=== PATIENT | male | born 2000 | race Caucasian/White ===

== ENCOUNTER 2018-08-18 13:00 | Outpatient (RCR) | payer BC ==
[~2018-08-18 13:00] MED LIST: ZOLOFT100 MG PO
[2018-09-25 22:55] VITALS: BP 114/65
== END 2018-09-19 | disposition still patient (30) ==
LOC: PT
DX: M77.51 Other enthesopathy of right foot and ankle (principal)

== ENCOUNTER → 2019-10-26 | Outpatient (CLI) | payer BC ==
[2018-09-25 22:55] VITALS: BP 114/65
== END ==
LOC: LAB 14:31
DX: R05 Cough (principal); R50.9 Fever, unspecified; R11.0 Nausea; R19.7 Diarrhea, unspecified; R61 Generalized hyperhidrosis

== ENCOUNTER 2020-08-19 20:51 | Emergency (ER) | payer BC ==
[2020-08-19 21:20] VITALS: BP 148/81
[2020-08-19] MEDS ORDERED: AUGMENTIN 875-1 EAC1 PO (21:33)
== END 2020-08-19 22:45 | disposition home or self-care (01) ==
LOC: ED 20:51
DX: S01.551A Open bite of lip, initial encounter (principal); W54.0XXA Bitten by dog, initial encounter; Y92.009 Unspecified place in unspecified non-institutional (private) residence as the place of occurrence of the external cause

== ENCOUNTER 2021-06-22 21:37 | Emergency (ER) | payer BC ==
[~2021-06-22] VITALS: Ht 182.9 cm; Wt 77.2 kg
[~2021-06-22 21:37] MED LIST changes: +AUGMENTIN 875-1 EAC1 PO
[2021-06-22 23:13] VITALS: BP 126/71
== END 2021-06-22 23:13 | disposition home or self-care (01) ==
LOC: ED 21:37
DX: M25.462 Effusion, left knee (principal); S40.021A Contusion of right upper arm, initial encounter; W17.81XA Fall down embankment (hill), initial encounter; W22.8XXA Striking against or struck by other objects, initial encounter
CPT/HCPCS: J1885; L1830